=== PATIENT | female | born 1975 | race Caucasian/White ===

== ENCOUNTER 2020-11-26 12:13 | Outpatient (REF) | payer MEDICAID, SELFPAY ==
--- NOTE | ~2020-11-26 | US_ITS ---
EXAMINATION: MM DIAGNOSTIC DIGITAL BREAST TOMOSYNTHESIS, BILATERAL US DIAGNOSTIC ULTRASOUND BREAST, BILATERAL CLINICAL INFORMATION: 44-year-old with intermittent bilateral breast pain for months. No known family history breast cancer. Prior outside mammography from [facility] unavailable. The lifetime risk of breast cancer based on the Tyrer-Cuzick Model is 7%. COMPARISON: None. TECHNIQUE: Digital breast tomosynthesis is performed in both the craniocaudal and mediolateral oblique views along with computer-aided detection (CAD). Synthesized 2D images are generated from the tomosynthesis. Ultrasound bilateral breasts is targeted to the areas of clinical concern using grayscale imaging and color Doppler without and with harmonics. Left breast is imaged in all 4 quadrants. Right breast is imaged in all 4 quadrants. FINDINGS: The breasts are heterogeneously dense, which may obscure small masses (ACR BI-RADS breast composition Category c). There is no architectural abnormality or abnormal calcifications in either breast. The axilla and skin contours are unremarkable. There is no skin thickening or coarsening of the Rohan's ligaments. The left breast has circumscribed 5 mm nodule 6:00 position mid depth. The right breast has circumscribed macrolobulated nodule central lower mid depth 0.9 cm and outer quadrant 0.7 cm and 0.8 cm, respectively. Ultrasound left breast demonstrates simple cyst 5:00 position 4 cm from nipple measuring 0.4 cm. There is no solid mass or architectural abnormality. No focal duct ectasia. No skin thickening or edema tracking in the soft tissue planes. Ultrasound right breast demonstrates multiple simple cysts largest 7:00 position 4 cm from nipple measuring 1.1 x 0.6 cm. There are 2 adjacent satellite cysts of smaller size in this area. There are other scattered cysts throughout the right breast and smaller size, and next largest 9:00 position 12 cm from nipple measuring 0.8 x 0.6 cm. There is no solid mass or architectural abnormality. No skin thickening or focal duct ectasia. No edema tracking in soft tissue planes. Preliminary results are discussed with the patient and her at time of visit. US/US breast LT limited IMPRESSION: 1. No mammographic evidence of malignancy or inflammatory changes. 2. Bilateral small simple cysts, largest right, only 1.1 cm. 3. No abscess. No edema tracking in soft tissue planes. ASSESSMENT: BI-RADS 2: Benign RECOMMENDATION: 1. Patient's breast pain may be be managed based on the clinical impression. 2. Otherwise, routine annual screening mammography. This patient's information was entered into a reminder system with a target due date for their next mammogram.
== END 2020-11-26 12:14 | disposition home or self-care (01) ==
LOC: HO.MAMMO 12:13
PROVIDERS: PCP Nurse Practitioner Family; Visit Provider Nurse Practitioner Family
DX: N64.4 Mastodynia (principal)
CPT/HCPCS: 76642; 77062; 77066

== ENCOUNTER 2021-03-20 09:59 | Outpatient (REF) | payer MEDICAID, SELFPAY ==
--- NOTE | ~2021-03-20 | US_ITS ---
EXAMINATION: US ABDOMEN LIMITED CLINICAL INFORMATION: Liver disease. MRI February 2021 showed 2.6 cm lesion right hepatic lobe. COMPARISON: None TECHNIQUE: Real-time imaging of the right upper quadrant abdominal viscera. FINDINGS: PANCREAS: Head and body the pancreas are normal. The tail is not well visualized due to bowel gas. LIVER: The liver is normal in size. The liver contour is normal. Parenchymal echogenicity is normal. There is a 2.7 x 3.1 x 2.3 cm hyperechoic lesion in the right lobe of the liver There is no intrahepatic biliary duct dilatation seen. GALLBLADDER: Normal. The gallbladder is physiologically distended without evidence of stones, sludge, polyps, wall thickening or pericholecystic fluid. COMMON BILE DUCT: Normal in caliber measuring 0.36 cm in diameter. RIGHT KIDNEY: There is a central cystic structure measuring 3.8 x 3.3 x 2.4 cm questionable for an extrarenal pelvis. Differential would include a right UPJ obstruction. No calyceal dilatation seen. No renal calculi or focal parenchymal lesions. The kidney measures 10.0 cm in maximum dimension. FREE FLUID: None. US/US abdomen limited IMPRESSION: 2.7 x 3.1 x 2.3 cm hyperechoic lesion in the right lobe of the liver. This may represent a benign hemangioma. Comparison with outside MRI recommended. 3.8 x 3.3 x 3.4 cm cystic structure in the central right kidney questionable for an extrarenal pelvis. Differential would include a UPJ obstruction. Limited visualization of the tail of pancreas.
== END 2021-03-20 10:00 | disposition home or self-care (01) ==
LOC: HO.HMGCX 09:59
PROVIDERS: Visit Provider Nurse Practitioner Family
DX: K76.9 Liver disease, unspecified (principal)
CPT/HCPCS: 76705

== ENCOUNTER 2025-05-29 10:03 | Outpatient (REF) | payer MEDICAID, SELFPAY ==
--- NOTE | ~2025-05-29 | XR_ITS ---
EXAMINATION: XR SHOULDER, LEFT CLINICAL INFORMATION: chronic pain COMPARISON: None available. TECHNIQUE: AP external rotation, Grashey, scapular Y, and axillary views of the left shoulder. FINDINGS: No acute cortical disruption or malalignment. No lytic or blastic lesions. No subchondral cyst formation or sclerosis along the articular surface. No calcifications in the soft tissues. XR/XR shoulder LT min 2V IMPRESSION: Normal x-ray, left shoulder. Electronically signed by: Wade Dyer MD 05/29/2025 10:53 AM EDT
--- OUTSIDE RECORDS SUMMARY | 2025-05-29 10:56 | XMS_ITS | Clinical Summary ---
Author Organization [employer] [facility] ity Address [address] [place] [address] Care Team Providers Care Finish Production Manager Name Role Phone Unavailable Primary Care Provider Unavailabl e Social History Tobacco Use Types Packs/Day Years Used Date Smoking Tobacco: Never Assessed Comments Unknown Sex and Gender Information Value Date Recorded Sex Assigned at Not on file Legal Sex Female 8:32 PM EST Gender Identity Not on file Sexual Orientation Not on file Plan of Treatment Health Maintenance Due Date Last Done Comments Breast Cancer Screening 1974 DTaP,Tdap,and Td Vaccines (1 - Tdap) 1993 Hepatitis B Vaccines (1 of 3 - 19+ 3-dose series) 1993 Cervical Cancer Screening: P ap Smear 12/26/1995 COVID-19 Vaccine ( - 2023-2 5 season) 2024 Depression Screening 10/12/2024 Pneumococcal Vaccine: 50+ Ye ars (1 of 1 - PCV) 2024 Zoster Vaccines (1 of 2) 2024 Influenza Vaccine (#1) 2025 HIB Vaccines Aged Out No longer eligi ble based on patient's age to complete this topic HPV Vaccines Aged Out No longer eligi ble based on patient's age to complete this topic Hepatitis A Vaccines Aged Out No long er eligible based on patient's age to complete this topic IPV Vaccines Aged Out No longer eligi ble based on patient's age to complete this topic MMR Vaccines Aged Out No longer eligi ble based on patient's age to complete this topic Meningococcal ACWY Vaccine Aged Out N o longer eligible based on patient's age to complete this topic Meningococcal B Vaccine Aged Out No l onger eligible based on patient's age to complete this topic RSV Immunization Patients Un tyrone 20 months Aged Out No longer eligible b ased on patient's age to complete this topic Varicella Vaccines Aged Out No longer eligible based on patient's age to complete this topic
--- OUTSIDE RECORDS SUMMARY | 2025-05-29 10:56 | XMS_ITS | Clinical Summary ---
Author Organization [employer] Address [address] [facility] [address] [place] [address] Care Team Providers Care Lead Pl Sql Developer Name Role Phone Ivonne Oh MANAGER FLORAL Primary Care Provider Allergies No known active allergies Medications fluticasone (Flonase) 50 MCG/ACT nasal sprayIndications :Pharyngitis, unspecified etiology Use 1 spray each nostril daily. Shake gently. Before first use, prime pump. After use, clean tip and replace cap. 16 g 2 05/11/2023 Active loratadine (Claritin) 10 MG tabletIndication s:Pharyngitis, unspecified etiology Take 1 tablet (10 mg) by mouth in the morning. 30 tablet 11 05/11/2023 Active acetaminophen (Tylenol 8 Hour) 650 MG ER tabletIndication s:Chronic left shoulder pain Take 1 tablet (650 mg) by mouth every 8 (eight) hours if needed for mild pain for up to 10 days. Do not crush, chew, or split. 30 tablet 05/27/2025 06/06/20 25 Active Active Problems Problem Noted Date Diagnosed Date Loss of taste 05/27/2025 Assessment & Plan (05/27/2025 10:16 AM EDT): Patient will be contacted with results ENT referral Loss of perception for smell 05/27/2025 Assessment & Plan (05/27/2025 10:16 AM EDT): Patient will be contacted with results ENT referral Chronic left shoulder pain 05/27/2025 Assessment & Plan (05/27/2025 10:16 AM EDT): Patient will be contacted with results Encounters Date Type Department Care Team Description 05/27/2025 9:40 AM EDT Office Visit [facility] [address] [place] [phone] Lianna Montero MD Loss of taste (Primary Dx); Loss of perception for smell; Chronic left shoulder pain 05/27/2025 Travel 05/26/2025 Telephone [facility] [address] [place] [phone] Ivonne Oh FNP Nurse Triage from Last 3 Months Social History Tobacco Use Types Packs/Day Years Used Date Smoking Tobacco: Never Passive Smoke Exposure: Never Smokeless Tobacco: Never Tobacco Cessation:Counseling Given: Not Answered Comments Unknown Sex and Gender Information Value Date Recorded Sex Assigned at Female 08/11/2022 10:36 AM EDT Legal Sex Female 10:36 AM EDT Gender Identity Female 08/11/2022 10:36 AM EDT Sexual Orientation Straight 08/11/2022 10 :36 AM EDT Last Filed Vital Signs Vital Sign Reading Time Taken Comments Blood Pressure 128/84 05/27/2025 9:34 AM EDT Pulse 80 05/27/2025 9:34 AM EDT Temperature 37.1 C (98.7 F) 05/27/2025 9:34 AM EDT Respiratory Rate 16 05/27/2025 9:34 AM EDT Oxygen Saturation 98% 05/11/2023 6:30 PM EDT Inhaled Oxygen Concentration - - Weight 70.5 kg (155 lb 6.4 oz) 05/27/2025 9:34 A M EDT Height 157.5 cm (5' 2 ) 05/27/2025 9:34 AM EDT Body Mass Index 28.42 05/27/2025 9:34 AM EDT Plan of Treatment Upcoming Encounters Date Type Department Care Team (Late st Contact Info) Description 06/21/2025 2:00 PM EDT Office Visit [facility] MED[facility] [address] [place] [phone] Ivonne Oh FNP [address] [place] [address] Health Maintenance Due Date Last Done Comments CT Colonography 1974 Colonoscopy 1974 Colorectal Cancer Screening 1974 Depression Screening 1974 FIT DNA/Cologuard 1974 FIT 1974 FOBT 1974 SDOH Screening 1974 Sigmoidoscopy 1974 Disability Screening 1974 Alcohol/Substance Use Screening 1986 Family Planning (PISQ) 1989 Hepatitis B Vaccines (1 of 3 - 19+ 3-dose series) 1993 Mammogram 11/26/2022 11/26/2020, 11/26/2020 COVID-19 Vaccine (3 - 2023-2 5 season) 2024 03/13/2021, 02/20/2021 Pneumococcal Vaccine: 50+ Years (1 of 1 - PCV) 2024 Zoster Vaccines (1 of 2) 2024 Influenza Vaccine (#1) 2025 08/01/2021 Cervical Cancer Screening 08/02/2025 HPV/Cotest 08/02/2025 08/02/2020 Pap Smear 08/02/2025 08/02/2020 Tobacco Screening 05/27/2026 05/27/2025 DTaP/Tdap/Td Vaccines (2 - T d or Tdap) 03/12/2029 03/12/2019 RSV Patients and Patients Aged 60 years or older (1 - 1-dose 75+ series) 2049 HIV Screening Completed 09/21/2019 Hepatitis C Screening Completed 09/21/2019 HIB Vaccines Aged Out No longer eligi [...] patient's age to complete this topic Meningococcal Vaccine Aged Out No pascale liam eligible based on patient's age to complete this topic RSV under 20 months Aged Out No longe r eligible based on patient's age to complete this topic Rotavirus Vaccines Aged Out No longer eligible based on patient's age to complete this topic Procedures Procedure Name Priority Date/Time Associated Diagnosis Comments MAMMOGRAM GENERIC Routine 11/26/2020 12: 17 PM EST HPV MRNA E6/E7 Routine 08/02/2020 1:37 PM EDT THINPREP PAP Routine 08/02/2020 1:37 PM EDT ZZZ HISTORICAL HEPATITIS C ANTIBODY RFLX Routine 09/21/2019 9:26 AM EST ZZZ HISTORICAL HIV AB/AG Routine 09/21/2019 9:26 AM EST from Last 3 Months or Most Recently Relevant to Health Maintenance Results * Mammography Report 1 (11/26/2020 12:17 PM EST) Anatomical Region Laterality Modality Breast Bilateral Mammography 11/26/2020 12:1 7 PM EST Narrative 11/26/2021 12:35 AM EST Refer to the Notes tab for result details [facility] Procedure: Mammography Report 1 Procedure Note Provider, Damon, - 01/03/2023 Refer to the Notes tab for result details [facility] Procedure: Mammography Report 1 us Dave Lopes MANAGER FLORAL IMG BI PROCEDURES Final Res ult * THINPREP PAP (08/02/2020 1:37 PM EDT) Clinical Information: SEE COMMENT [facility] Comment:None given COMMENT SEE COMMENT [facility] Comment: EXPLANATORY NOTE: The Pap is a screening test for cervical cancer. It is not a diagnostic test and is subject to false negative and false positive results. It is most reliable when a satisfactory sample, regularly obtained, is submitted with relevant clinical findings and history, and when the Pap result is evaluated along with historic and current clinical information. Fish And Wildlife Biologist: SEE COMMENT [facility] Comment: KF, CT(ASCP) CT screening location: [place] [address] Interpretation/Resu lt: SEE COMMENT [facility] Comment:Negative for intraep ithelial lesion or malignancy. LMP: SEE COMMENT [facility] Comment:NONE GIVEN Prev. BX: NONE GIVEN [facility] Prev. PAP: SEE COMMENT [facility] Comment:NONE GIVEN SOURCE: SEE COMMENT [facility] Comment:None given Statement Of Adequacy: SEE COMMENT [facility] Comment: Satisfactory for evaluation. Endocervical/transformation zone component absent. Age and/or menstrual status not provided 08/02/2020 1:37 PM EDT General [employer] [facility] PATHOLOGY ORDERABLES Fi nal Result Performing Organization Address [facility] de Phone Number [facility] [address] * HPV mRNA E6/E7 (08/02/2020 1:37 PM EDT) Pathologist [facility] HPV nRNA E6/E7 Not Detected Not Detected [facility] Comment: This test was performed using the APTIMA HPV Assay ([employer] This assay detects E6/E7 viral messenger RNA (mRNA) from 14 high-risk HPV types (16,18,31,33,35,39,45,51,52,56,58,59,66,68). The analytical performance characteristics of this assay have been determined by [employer]. The modifications have not been cleared or approved by the FDA. This assay has been validated pursuant to the CLIA regulations and is used for clinical purposes. NO COLLECTION DATE RECEIVED. WE HAVE USED THE DATE THE SPECIMEN WAS RECEIVED BY THIS LABORATORY THE COLLECTION DATE. IF THIS IS INCORRECT, PLEASE CONTACT CLIENT SERVICES. PHONE NUMBER: 08/02/2020 1:37 PM EDT [employer] [facility] BLOOD ORDERABLES Final Result Performing Organization Address [facility] de Phone Number [facility] [address] * HEPATITIS C ANTIBODY RFLX (09/21/2019 9:26 AM EST) Pathologist [facility] HEPATITIS C ANTIBODY NONREACTIVE NONREACTIVE [facility] Comment: Antibodies to HCV not detected; does not exclude early acute HCV infection. 09/21/2019 9:26 AM EST Lv Pacheco MD HISTORICAL/NON ORDERABLE LABS Fi nal Result Performing Organization Address [facility] Number [facility] [address] * HIV AB/AG (09/21/2019 9:26 AM EST) HIV AG/AB NONREACTIVE [facility] Comment: HIV-1 p24 Ag and/or HIV-1/HIV-2 Ab not detected. A test result that is nonreactive does not exclude the possibility of exposure to or infection with HIV-1 and/or HIV-2. Nonreactive results in this assay for individuals with prior exposure to HIV-1 and/or HIV-2 may be due to antigen and antibody levels that are below the limit of detection of this assay. The [employer] Operating Room Coordinator HIV Ag/Ab Combo assay result and supplemental assay results should be interpreted in conjunction with the patient's clinical presentation, history and other laboratory results. If the results are inconsistent with clinical evidence, additional testing is suggested to confirm the result. 09/21/2019 9:26 AM EST Lv Pacheco MD HISTORICAL/NON ORDERABLE LABS Fi nal Result Performing Organization Address [facility] [address] from Last 3 Months or Most Recently Relevant to Health Maintenance Insurance [facility] C3 Care Teams Lead Pl Sql Developer Relationship Specialty Start Date End Date Ivonne Oh FNP [address] [place] [phone] PCP - General Family Medicine 05/26/25
== END 2025-05-29 10:04 | disposition home or self-care (01) ==
LOC: HO.HHCX 10:03
PROVIDERS: Visit Provider Internal Medicine
DX: M25.512 Pain in left shoulder (principal); G89.29 Other chronic pain
CPT/HCPCS: 73030

== ENCOUNTER → 2025-05-29 10:03 | Outpatient (BNV) | payer MEDICAID, SELFPAY | PROVIDERS: Visit Provider Radiology Diagnostic Radiology | DX: M25.512 Pain in left shoulder (principal) | CPT/HCPCS: 73030 ==

== ENCOUNTER 2025-05-29 10:19 | Outpatient (REF) | payer MEDICAID, SELFPAY ==
[2025-05-29 11:37] LABS: Imm Gran Abs Auto 0.02 X10*3/uL (0.00-0.03); Imm Gran Pct Auto 0.3 % (0.0-0.4); MANUAL DIFF FLAG SCAN; NRBC Abs Auto 0.000 X10*3/uL (0.0-0.012); NRBC Pct Auto 0.0 /100WBC (0.0-0.2); PLT CLUMP 1; Red Blood Count 4.49 X10*6/uL (4.20-5.50); SCAN SMEAR FLAG 1
[2025-05-29 11:38] LABS: Hematocrit 40.8 % (37.0-47.0); Hemoglobin 13.4 g/dl (12.0-16.0); Lymphocytes Absolute Auto 2.3 X10*3/uL (1.2-4.9); Mean Corpuscular HGB Conc 32.8 g/dl (31.0-35.0); Mean Corpuscular Hemoglobin 29.8 pg (27.0-33.0); Mean Corpuscular Volume 90.9 fL (80.0-98.0)
[2025-05-29 11:40] LABS: White Blood Count 7.1 X10*3/uL (4.8-10.8)
[2025-05-29 12:13] LABS: Hemoglobin A1C 175.7090 umol/L; Total Hemoglobin (HGBA1C) 4950.3985 umol/L
[2025-05-29 12:24] LABS: Alanine Aminotransferase 17 U/L (0-31); Albumin Level 4.4 g/dL (3.5-5.0); Alkaline Phosphatase 68 U/L (39-117); Anion Gap 12 (12-20); Aspartate Amino Transferase 25 U/L (5-31); Blood Urea Nitrogen 14 mg/dL (9-16); Calcium 9.7 mg/dL (8.4-10.2); Carbon Dioxide 27 mmol/L (22-29); Chloride 104 mmol/L (96-108); Cholesterol 280 mg/dL (<200); Estimated Glomerular Filt Rate > 60; HDL Cholesterol 47 mg/dL (>40); Potassium 4.2 mmol/L (3.3-5.1); Sodium 139 mmol/L (135-145); Total Protein 8.0 g/dL (6.5-8.0); Triglycerides 134 mg/dL (<150)
[2025-05-30 07:53] LABS: HIV Num 1 0.04 S/CO (0.00-0.99); ~HepC Num1 0.11 S/CO (0.00-0.79); ~Hepatitis C Antibody Nonreactive (Nonreactive)
== END 2025-05-29 10:20 | disposition home or self-care (01) ==
LOC: HO.HHCL 10:19
PROVIDERS: PCP Internal Medicine; Visit Provider Internal Medicine
DX: Z11.59 Encounter for screening for other viral diseases (principal); Z11.4 Encounter for screening for human immunodeficiency virus [HIV]; R43.2 Parageusia; R43.0 Anosmia
CPT/HCPCS: 36415; 80053; 80061; 82306; 83036; 84443; 85025; 86803; 87389

== ENCOUNTER 2025-06-22 09:24 | Outpatient (REF) | payer MEDICAID, SELFPAY ==
--- OUTSIDE RECORDS SUMMARY | 2025-06-21 14:00 | XMS_ITS | Encounter Summary ---
Author Organization [employer] Address [address] [place] [address] Care Team Providers Care Type Cutter Name Role Phone Ivonne Oh [employer]ING [employer]OR[employer] Primary Care Provider [phone] Encounter Details Date Type Department Care Team (Late st Contact Info) Description 06/21/2025 2:00 PM EDT Office Visit [facility] [address] [place], [place] [phone] Ivonne Oh FNP [address], [place] [phone] Well adult exam (Primary Dx) Social History Tobacco Use Types Packs/Day Years Used Date Smoking Tobacco: Never Passive Smoke Exposure: Never Smokeless Tobacco: Never Depression Answer Date Recorded Patient Health Questionnaire-9 Score 9 06/21/2025 Patient Health Questionnaire-9 Score 9 06/21/2025 Last PHQ-9: Questionnaire Data Not on file 0 06/21/2025 Housing Stability Answer Date Recorded What is your housing situation today? I have housing today, but I am worried about losing housing in the future 06/21/[address] you li ve. Do you have problems with any of the following? None of the above 06/21/2025 Food Insecurity Answer Date Recorded Within the past 12 months, y ou worried that your food would run out before you got money to buy more: Often true 06/21/2025 Within the past 12 months,th e food you bought just didn't last and you didn't have enough money to get more: Often true 07/2025 Transportation Answer Date Recorded In the past 12 months, has l ack of transportation kept you from medical appts, meetings, work or from getting things needed for daily living? I am not sure 06/21/2025 Utilities Answer Date Recorded In the past 12 months, has t he electric, gas, oil or water company threatened to shut off services in your home? Yes 06/21/2025 Depression Answer Date Recorded Patient Health Questionnaire-2 Score 2 06/21/2025 Internet Access Answer Date Recorded Internet Access Q1 Yes 06/21/2025 Internet Access Q2 Not on file 06/21/2025 Comments Unknown Sex and Gender Information Value Date Recorded Sex Assigned at Female 08/11/2022 10:36 AM EDT Legal Sex Female 10:36 AM EDT Gender Identity Female 08/11/2022 10:36 AM EDT Sexual Orientation Straight 08/11/2022 10 :36 AM EDT documented as of this encounter Last Filed Vital Signs Vital Sign Reading Time Taken Comments Blood Pressure 114/82 06/21/2025 1:56 PM EDT Pulse 75 06/21/2025 1:56 PM EDT Temperature 37.2 C (98.9 F) 06/21/2025 1:56 PM EDT Respiratory Rate 18 06/21/2025 1:56 PM EDT Oxygen Saturation 99% 06/21/2025 1:56 PM EDT Inhaled Oxygen Concentration - - Weight 69.1 kg (152 lb 6 oz) 06/21/2025 1:56 PM EDT Height 160 cm (5' 2.99 ) 06/21/2025 1:56 PM EDT Body Mass Index 27 06/21/2025 1:56 PM EDT documented in this encounter Functional Status * Over the past 2 weeks, how often have you been bothered by any of the following problems? Question Answer Date of Assessment Author Patient Health Questionnaire -2 Score 2 06/21/2025 1:59 PM EDT Jenniffer Nagel MA * Little interest or pleasure in doing things Answer Date of Assessment Author Several days 06/21/2025 1:59 PM EDT Jenniffer Latham MA * Feeling down, depressed, or hopeless Answer Date of Assessment Author Several days 06/21/2025 1:59 PM EDT Jenniffer Latham MA * Trouble falling or staying asleep, or sleeping too much Answer Date of Assessment Author Several days 06/21/2025 1:59 PM EDT Jenniffer Latham MA * Feeling tired or having little energy Answer Date of Assessment Author Several days 06/21/2025 1:59 PM EDT Jenniffer Latham MA * Poor appetite or overeating Answer Date of Assessment Author Several days 06/21/2025 1:59 PM EDT Jenniffer Latham MA * Feeling bad about yourself - or that you are a failure or have let yourself or your family down Answer Date of Assessment Author Several days 06/21/2025 1:59 PM EDT Jenniffer Latham MA * Trouble concentrating on things, such as reading the newspaper or watching television Answer Date of Assessment Author Several days 06/21/2025 1:59 PM EDT Jenniffer Latham MA * Moving or speaking so slowly that other people could have noticed? Or the opposite - being so fidgety or restless that you have been moving around a lot more than usual. Answer Date of Assessment Author Several days 06/21/2025 1:59 PM EDT Jenniffer Latham MA * Thoughts that you would be better off or hurting yourself in some way Answer Date of Assessment Author Several days 06/21/2025 1:59 PM EDT Jenniffer Latham MA * Patient Health Questionnaire-9 Score Answer Date of Assessment Author 9 06/21/2025 1:59 PM EDT Jenniffer Latham MA * How difficult have these problems made it for you to do your work, take care of things at home, or get along with other people? Answer Date of Assessment Author Somewhat difficult 06/21/2025 1:59 PM EDT Jenniffer Nagel MA * Over the last 2 weeks, how often have you been bothered by any of the following problems? Question Answer Date of Assessment Author Feeling nervous, anxious, or on edge 0 06/21/2025 1:59 PM EDT Jenniffer Nagel MA Not being able to stop or control worrying 1 06/21/2025 1:59 PM EDT Jenniffer Nagel MA Worrying too much about different things 2 06/21/2025 1:59 PM EDT Jenniffer Ngael MA Trouble relaxing 2 06/21/2025 1:59 PM EDT Jenniffer Carrington MA Being so restless that it is hard to sit still 2 06/21/2025 1:59 PM EDT Jenniffer Nagel MA Becoming easily annoyed or irritable 2 06/21/2025 1:59 PM EDT Jenniffer Nagel MA Feeling afraid as if somethi ng awful might happen 1 06/21/2025 1:59 PM EDT Jenniffer Nagel MA SÁNCHEZ-7 Total Score 10 06/21/2025 1:59 PM EDT Jenniffer Nagel MA documented as of this encounter Plan of Treatment Upcoming Encounters Date Type Department Care Team (Late st Contact Info) Description 06/28/2025 11:00 AM EDT Office Visit [facility] [address] [place] [phone] Ivonne Oh FNP [address] [place] [address] 06/30/2025 9:30 AM EDT Office Visit [facility] [address] [place] [address] Scheduled Orders Name Type Priority Associated Diagnoses Orde r Schedule Comprehensive Metabolic Panel Lab Routine Well adult exam Expected: 06/21/2025 (Approximate), Expires: 06/21/2026 Hepatitis B Core Antibody, Total Lab Routine Well adult exam Expected: 06/21/2025 (Approximate), Expires: 06/21/2026 TSH Lab Routine Well adult exam Expected: 06/21/2025 (Approximate), Expires: 06/21/2026 Hepatitis B Surface Antibody, Qualitative Lab Routine Well adult exam Expected: 06/21/2025 (Approximate), Expires: 06/21/2026 Hepatitis B surface antigen, EIA Lab Routine Well adult exam Expected: 06/21/2025 (Approximate), Expires: 06/21/2026 Hepatitis C Antibody with Reflex to HCV, RNA, Quantitative, Real-Time PCR Lab Routine Well adult exam Expected: 06/21/2025, Expires: 06/21/2026 CBC auto differential Lab Routine Well adult exam Expected: 06/21/2025 (Approximate), Expires: 06/21/2026 HIV-1/2 Antigen and Antibodies, Fourth Generation, with Reflexes Lab Routine Well adult exam Expected: 06/21/2025 (Approximate), Expires: 06/21/2026 Vitamin D, 25-Hydroxy, Total, Immunoassay Lab Routine Well adult exam Expected: 06/21/2025 (Approximate), Expires: 06/21/2026 Chlamydia/N. Gonorrhoeae, PCR, Urine Lab Routine Well adult exam Ordered: 06/21/2025 documented as of this encounter Visit Diagnoses Diagnosis Well adult exam- Primary Routine general medical examination at a health care facility documented in this encounter Additional Health Concerns Assessment Noted Time PHQ-9 Depression Total Score: 9 06/21/20 25 1:59 PM EDT documented as of this encounter Care Teams Type Cutter Relationship Specialty Start Date End Date Ivonne Oh FNP [address] [place] [id number] PCP - General Family Medicine 05/26/25 documented as of this encounter
--- OUTSIDE RECORDS SUMMARY | 2025-06-22 10:54 | XMS_ITS | Clinical Summary ---
Author Organization [employer] Address [address] [facility] [address] [place] [address] Care Team Providers Care Coverer Name Role Phone Ivonne Oh ICT SALES ASSISTANT Primary Care Provider [phone] Allergies No known active allergies Medications fluticasone (Flonase) 50 MCG/ACT nasal sprayIndications:P haryngitis, unspecified etiology Use 1 spray each nostril daily. Shake gently. Before first use, prime pump. After use, clean tip and replace cap. 16 g 2 05/11/20 23 Active fexofenadine ODT (Jany ODT) 30 MG disintegrating tablet Take 30 mg by mouth Once per day. Active ibuprofen 200 MG tablet 200 mg every 6 (six) hours if needed for mild pain or moderate pain. Active loratadine (Claritin) 10 MG tabletIndications: Pharyngitis, unspecified etiology Take 1 tablet (10 mg) by mouth in the morning. 30 tablet 11 05/11/20 23 025 Discontinu ed(Ineffec tive) acetaminophen (Tylenol 8 Hour) 650 MG ER tabletIndications: Chronic left shoulder pain Take 1 tablet (650 mg) by mouth every 8 (eight) hours if needed for mild pain for up to 10 days. Do not crush, chew, or split. 30 tablet 05/27/20 25 025 Active Problems Problem Noted Date Diagnosed Date Chronic thoracic back pain 06/21/2025 Loss of taste 05/27/2025 Assessment & Plan [...] Encounters Date Type Department Care Team Description 06/21/2025 2:00 PM EDT Office Visit [facility] [address] [place] [phone] Ivonne Oh FNP Well adult exam (Primary Dx) 06/21/2025 Travel 06/19/2025 Telephone [facility] [address] [place] [address] Ivonne Oh FNP Chart Prep 06/14/2025 Patient Outreach [facility] [address] [place] [address] Ivnone Oh FNP Pre-visit Planning (SDOH will need to be completed in office.) 05/29/2025 Orders Only [facility] [address] [place] [phone] Lianna Montero MD 05/29/2025 Results Follow-Up [facility] [address] [place] [address] Lianna Montero MD XR Shoulder 2+ Views Left 05/27/2025 9:40 AM EDT Office Visit [facility] [address] [place] [phone] Lianna Montero MD Loss of taste (Primary Dx); Loss of perception for smell; Chronic left shoulder pain 05/27/2025 Travel 05/26/2025 Telephone [facility] [address] [place] [phone] Ivonne Oh FNP Nurse Triage from Last 3 Months Family History Medical History Relation Name Comments Cancer Father Cancer Mother Throat cancer Sister Relation Name Status Comments Father Mother Sister Social History Tobacco Use Types Packs/Day Years Used Date Smoking Tobacco: Never Passive Smoke Exposure: Never Smokeless Tobacco: Never Tobacco Cessation:Counseling Given: Not Answered Depression Answer Date Recorded Patient Health Questionnaire-9 [...] Mass Index 27 06/21/2025 1:56 PM EDT Plan of Treatment Upcoming Encounters Date Type Department Care Team (Late st Contact Info) Description 06/28/2025 11:00 AM EDT Office Visit [facility] [address] [place] [address] Ivonne Oh FNP [address] [place] [address] 06/30/2025 9:30 AM EDT Office Visit [facility] AD[facility] DENTAL [address] [place] [address] Health Maintenance Due Date Last Done Comments CT Colonography 1974 Colonoscopy 1974 Colorectal Cancer Screening 1975 FIT DNA/Cologuard 1974 FIT 1975 FOBT 1975 Sigmoidoscopy 1975 Family Planning (PISQ) 1989 Hepatitis B Vaccines (1 of 3 - 19+ 3-dose series) 1993 Mammogram 11/26/2022 11/26/2020, 11/26/2020 Pneumococcal Vaccine: 50+ Years (1 of 1 - PCV) 2024 Zoster Vaccines (1 of 2) 2024 COVID-19 Vaccine (3 2024-2 6 season) 2025 03/13/2021, 02/20/2021 Influenza Vaccine (#1) 2025 08/01/2021 Cervical Cancer Screening 08/02/2025 HPV/Cotest 08/02/2025 08/02/2020 Pap Smear 08/02/2025 08/02/2020 Depression Monitoring 12/19/2025 06/21/2025 , 06/21/2025 Alcohol/Substance Use Screening 06/21/2026 06/21/2025 Disability Screening 06/21/2026 06/21/2025 SDOH Screening 06/21/2026 06/21/2025 Tobacco Screening 06/21/2026 06/21/2025 DTaP/Tdap/Td Vaccines (2 - T d or Tdap) 03/12/2029 03/12/2019 RSV Patients and Patients Aged 60 years or older (1 - 1-dose 75+ series) 2049 HIV Screening Completed 05/29/2025, 09/21/2019 Hepatitis C Screening Completed 05/29/2025 , 09/21/2019 HIB Vaccines Aged Out No longer [...] Procedure Name Priority Date/Time Associated Diagnosis Comments SLIDE REVIEW Routine 05/29/2025 10:32 AM EDT TSH W/REFLEX TO FT4 Routine 05/29/2025 1 0:32 AM EDT Loss of taste Loss of perception for smell VITAMIN D,25-OH,TOTAL,IA Routine 05/29/2025 10:32 AM EDT Loss of taste Loss of perception for smell LIPID PANEL, STANDARD Routine 05/29/2025 10:32 AM EDT Loss of taste Loss of perception for smell HEPATITIS C AB W/REFL TO HCV RNA, QN, PCR Routine 05/29/2025 10:32 AM EDT Loss of taste Loss of perception for smell HIV 1/2 ANTIGEN/ANTIBODY, FOURTH GENERATION W/RFL Routine 05/29/2025 10:32 AM EDT Loss of taste Loss of perception for smell HEMOGLOBIN A1C Routine 05/29/2025 10:32 AM EDT Loss of taste Loss of perception for smell COMPREHENSIVE METABOLIC PANEL Routine 05/29/2025 10:32 AM EDT Loss of taste Loss of perception for smell CBC WITH AUTO DIFFERENTIAL Routine 05/29/2025 10:32 AM EDT Loss of taste Loss of perception for smell XR SHOULDER 2+ VIEWS LEFT Routine 05/29/2025 9:26 AM EDT Chronic left shoulder pain MAMMOGRAM GENERIC Routine 11/26/2020 12: 17 PM EST HPV MRNA E6/E7 Routine 08/02/2020 1:37 PM EDT THINPREP PAP Routine 08/02/2020 1:37 PM EDT from Last 3 Months or Most Recently Relevant to Health Maintenance Results * Slide Review (05/29/2025 10:32 AM EDT) Slide Review VERIFIED [facility] 05/29/2025 10:3 2 AM EDT 05/29/2025 11:10 AM EDT us Lianna Taylor MD LAB BLOOD ORDERABLES Final Result [facility] [address] [place] [phone] * Vitamin D, 25-Hydroxy, Total, Immunoassay (05/29/2025 10:32 AM EDT) Vitamin D 25-OH Total 76.2 >30 ng/mL [facility] Comment: Health Based Reference Values*< 20 ng/mL [id number] ng/mL Insufficient> 30 ng/mL Sufficient*Tre LOVELL. N Engl J Med. 2007;357:266-280There is no well-established upper level of normal vitamin Dlevels. Some laboratories use 50 ng/mL as an upper limit ofnormal. However, toxicity is patient-dependent and may occurat any level. Careful correlation with the patient'spresentation is necessary and, if there is concern forvitamin D toxicity, treatment should be consideredirrespective of the serum level.Care must be taken in interpreting Vitamin D results fromdifferent laboratories and methodologies. Published datademonstrated that results from patients undergoinghemodialysis may show a negative bias when tested withvarious automated 25-OH vitamin D assays when compared toLC-MS/MS.When testing samples from patients whose predominant form ofVitamin D is Vitamin D2, such as patients receiving VitaminD2 supplementation, results that are subtherapeutic shouldbe confirmed with another method such as LC-MS/MS. Blood Venous blood specimen / Unknown 05/29/2025 10:32 AM EDT 05/29/2025 11:10 AM EDT us Lianna Taylor MD LAB BLOOD ORDERABLES Final Result Performing Organization Address [facility]/ZIP Co de Phone Number [facility] [address] [place] [phone] * TSH with Reflex to Free T4 (05/29/2025 10:32 AM EDT) Pathologist [facility] TSH reflex Free T4 1.87 0.32 - 4.0 uIU/mL [facility] Blood Venous blood specimen / Unknown 05/29/2025 10:32 AM EDT 05/29/2025 11:10 AM EDT us Lianna Taylor MD LAB BLOOD ORDERABLES Final Result Performing Organization Address [facility]/ZIP Co de Phone Number [facility] [address] [place] [phone] * (ABNORMAL) CBC auto differential (05/29/2025 10:32 AM EDT) White Blood Count 7.1 4.8 - 10.8 X10*3/uL [facility] Red Blood Count 4.49 4.20 - 5.50 X10*6/uL [facility] Hemoglobin 13.4 12.0 - 16.0 g/dl [facility] Hematocrit 40.8 37.0 - 47.0 % [facility] Mean Corpuscular Volume 90.9 80.0 - 98.0 fL [facility] Mean Corpuscular Hemoglobin 29.8 27.0 - 33.0 pg [facility] Mean Corpuscular HGB Conc 32.8 31.0 - 35.0 g/dl [facility] Red Cell Distribution Width 13.2 11.0 - 16.0 % [facility] Neutrophils Percent Auto 55.8 45 - 73 % [facility] Imm Gran Pct Auto 0.3 0.0 - 0.4 % [facility] Lymphocytes Percent Auto 31.7 20 - 40 % [facility] Monocytes Percent Auto 7.4 2 - 11 % [facility] Eosinophils Percent Auto 4.1(H) 0 - 4 % [facility] Basophils Percent Auto 0.7 0 - 2 % [facility] NRBC Pct Auto 0.0 0.0 - 0.2 /100WBC [facility] Neutrophils Absolute Auto 4.0 2.0 - 8.3 x10*3/uL [facility] Imm Gran Abs Auto 0.02 0.00 - 0.03 X10*3/uL [facility] Lymphocytes Absolute Auto 2.3 1.2 - 4.9 X10*3/uL [facility] Monocytes Absolute Auto 0.5 0.1 - 1.2 X10*3/uL [facility] Eosinophils Absolute Auto 0.3 0.0 - 0.4 X10*3/uL [facility] Basophils Absolute Auto 0.1 0.0 - 0.2 X10*3/uL [facility] NRBC Abs Auto 0.000 0.0 - 0.012 X10*3/uL [facility] Blood Venous blood specimen / Unknown 05/29/2025 10:32 AM EDT 05/29/2025 11:10 AM EDT us Lianna Taylor MD LAB BLOOD ORDERABLES Edited Result - Final Performing Organization Address [facility]/ZIP Co de Phone Number [facility] [address] [place] [phone] * Hepatitis C Antibody with Reflex to HCV, RNA, Quantitative, Real-Time PCR (05/29/2025 10:32 AM EDT) Hepatitis C Antibody Nonreactive Nonreactive [facility] Comment:Antibodies to HCV no t detected; does not exclude early acuteHCV infection. Blood Venous blood specimen / Unknown 05/29/2025 10:32 AM EDT 05/29/2025 11:10 AM EDT Lianna Taylor MD LAB BLOOD ORDERABLES Final Result Performing Organization Address [facility] de Phone Number [facility] [address] [place] [phone] * HIV-1/2 Antigen and Antibodies, Fourth Generation, with Reflexes (05/29/2025 10:32 AM EDT) Pathologist [facility] HIV AB/AG Nonreactive Nonreactive [facility] Comment:HIV-1 p24 Ag and/or HIV-1/HIV-2 Ab not detected.A test result that is nonreactive does not exclude thepossibility of exposure to or infection with HIV-1 and/orHIV-2. Nonreactive results in this assay for individualswith prior exposure to HIV-1 and/or HIV-2 may be due toantigen and antibody levels that are below the limit ofdetection of this assay.The [employer] HIV Ag/Ab Combo assay result andsupplemental assay results should be interpreted inconjunction with the patient's clinical presentation,history and other laboratory results. If the results areinconsistent with clinical evidence, additional testing issuggested to confirm the result. Blood Venous blood specimen / Unknown 05/29/2025 10:32 AM EDT 05/29/2025 11:10 AM EDT us Lianna Taylor MD LAB BLOOD ORDERABLES Final Result Performing Organization Address City/[facility]/ZIP Co de Phone Number [facility] [address] [place] [phone] * Hemoglobin A1c (05/29/2025 10:32 AM EDT) Hemoglobin A1c 5.4 <6.0 % [facility] Comment:Hemoglobin A1C Refer ence Range Adults: 4.8 - 6.0 % Non diabetic: < 6.0 % Goal: < 7.0 %Additional Action Suggested: > 8.0 %Note: Hemoglobin A1c results are invalid for patients with abnormal amounts of HbF. Blood transfusions may impact the HbA1c concentration in the patient sample. Estimated Average Glucose 108 mg/dL [facility] Comment:eAG = Estimated ave rage glucose which is %A1C expressed asaverage glucose, using the formula of the D6O-AegsoqtXabumyz Glucose study (ADAG), Diabetes Care, Vol.31,#8,May. 2007 Blood Venous blood specimen / Unknown 05/29/2025 10:32 AM EDT 05/29/2025 11:10 AM EDT us Lianna Taylor MD LAB BLOOD ORDERABLES Final Result Performing Organization Address City/[facility]/ZIP Co de Phone Number [facility] [address] [place] [phone] * (ABNORMAL) Lipid Panel, Standard (05/29/2025 10:32 AM EDT) Triglycerides 134 <150 mg/dL [facility] Comment:Desirable Triglyceri de: less than 150 mg/dLBorderline High Triglyceride 150-199 mg/dLHigh Triglyceride: 200-499 mg/dLVery High Triglyceride: greater than or equal to 5OO mg/dL Cholesterol 280(H) <200 mg/dL [facility] Comment:Desirable Cholestero l: less than 200 mg/dLBorderline High Cholesterol: 200-239 mg/dLHigh Cholesterol: greater than 239 mg/dL LDL Cholesterol Calculated 207(H) <100 mg/dL [facility] Comment:Desirable LDL: less than 100 mg/dLNear Optimal/Above Optimal LDL: 110- 129 mg/dLBorderline High LDL: 130-159 mg/dLHigh LDL: 160-189 mg/dLVery High LDL: greater than or equal to 190 mg/dL HDL Cholesterol 47 >40 mg/dL [facility] Comment:Desirable HDL: great er than 40 mg/dL Note: This HDL assay may give artificially low results in patients with liver disease. Blood Venous blood specimen / Unknown 05/29/2025 10:32 AM EDT 05/29/2025 11:10 AM EDT Lianna Taylor MD LAB BLOOD ORDERABLES Final Result [facility] [address] [place] [phone] [phone] * Comprehensive Metabolic Panel (05/29/2025 10:32 AM EDT) Sodium 139 135 - 145 mmol/L [facility] Potassium 4.2 3.3 - 5.1 mmol/L [facility] Comment:Slight Hemolysis.Int erpret result with caution. Chloride 104 96 - 108 mmol/L [facility] Carbon Dioxide 27 22 - 29 mmol/L [facility] Anion Gap 12 12 - 20 [facility] Urea Nitrogen (BUN) 14 9 - 16 mg/dL [facility] Creatinine, Serum 0.67 0.5 - 1.4 mg/dL [facility] Estimated Glomerular Filt Rate >60 [facility] Comment:Chronic Kidney Disea se: Estimated GFR < 60 mL/min/1.48m9Zrstmk Kidney Disease: Estimated GFR < 15 mL/min/1.73m2 Glucose 90 60 - 115 mg/dL [facility] Calcium 9.7 8.4 - 10.2 mg/dL [facility] Bilirubin, Total 0.6 0.0 - 1.0 mg/dL [facility] Aspartate Amino Transferase 25 5 - 31 U/L [facility] Comment:Slight Hemolysis.Int erpret result with caution. Alanine Aminotransferase 17 0 - 31 U/L [facility] Total Protein 8.0 6.5 - 8.0 g/dL [facility] Albumin Level 4.4 3.5 - 5.0 g/dL [facility] Alkaline Phosphatase 68 39 - 117 U/L [facility] Blood Venous blood specimen / Unknown 05/29/2025 10:32 AM EDT 05/29/2025 11:10 AM EDT us Lianna Taylor MD LAB BLOOD ORDERABLES Final Result Performing Organization Address City/State/[facility] Co de Phone Number [facility] [address] [place] [phone] * XR Shoulder 2+ Views Left (05/29/2025 9:26 AM EDT) Anatomical Region Laterality Modality Upper Extremities, Shoulder Left Radi ographic Imaging 05/29/2025 9:26 AM EDT Narrative 05/29/2025 10:56 AM EDT [address] [address] XRay Report Signed Patient: Tanika Miner MR#: [id number] : 1975 Acct:[id number] Age/Sex: 49 / F ADM Date: 05/29/25 Loc: .[facility] Attending Dr: Lianna Taylor MD Ordering Physician: Lianna Montero MD Date of Service: 05/29/25 Procedure(s): XR shoulder LT min 2V Accession Number(s): [id number] cc: Lianna Montero MD EXAMINATION: XR SHOULDER, LEFT CLINICAL INFORMATION: chronic pain COMPARISON: None available. TECHNIQUE: AP external rotation, Grashey, scapular Y, and axillary views of the left shoulder. FINDINGS: No acute cortical disruption or malalignment. No lytic or blastic lesions. No subchondral cyst formation or sclerosis along the articular surface. No calcifications in the soft tissues. XR/XR shoulder LT min 2V IMPRESSION: Normal x-ray, left shoulder. Electronically signed by: Wade Dyer MD 05/29/2025 10:53 AM EDT RP Dictated By: Wade Wlalace MD Signed By: <Electronically signed by Wade Gastelum MD in OV> 05/29/25 1053 DD/ 5 TD/TT: 05/29/25929 Statement Processor: Procedure Note Donotuseinterpreter, Image - 05/29/[address] [address] XRay Report Signed Patient: Zeferino Miner#: [id number] : 1975Acct:[id number] Age/Sex: 49 / FADM Date: 05/29/25 [facility]: Lianna Taylor MD Ordering Physician: Lianna Montero MD Date of Service: 05/29/25 Procedure(s): XR shoulder LT min 2V Accession Number(s): [id number] cc: Lianna Montero MD EXAMINATION: XR SHOULDER, LEFT CLINICAL INFORMATION: chronic pain COMPARISON: None available. TECHNIQUE: AP external rotation, Grashey, scapular Y, and axillary views of the left shoulder. FINDINGS: No acute cortical disruption or malalignment. No lytic or blastic lesions. No subchondral cyst formation or sclerosis along the articular surface. No calcifications in the soft tissues. XR/XR shoulder LT min 2V IMPRESSION: Normal x-ray, left shoulder. Electronically signed by: Wade Dyer MD 05/29/2025 10:53 AM EDT RP Dictated By: Wade Wallace MD Signed By: <Electronically signed by Wade Gastelum MDin OV> 05/29/25 1053 DD/ 5 TD/TT: 05/29/25929 Statement Processor: us Lianna Taylor MD IMG XR PROCEDURES Fin al Result * Mammography Report 1 (11/26/2020 12:17 PM EST) Anatomical Region Laterality Modality Breast Bilateral Mammography 11/26/2020 12:1 7 PM EST Narrative 11/26/2021 12:35 AM EST Refer to the Notes tab for result details [facility] Procedure: Mammography Report 1 Procedure Note Provider, Damon, - 01/03/2023 Refer to the Notes tab for result details [facility] Procedure: Mammography Report 1 Dave Lopes ICT SALES ASSISTANT IMG BI PROCEDURES Final Res ult * THINPREP PAP (08/02/2020 1:37 PM EDT) Clinical Information: SEE COMMENT [facility] Comment:None given COMMENT SEE COMMENT [...] along with historic and current clinical information. Director Industrial Nursing: SEE COMMENT [facility] Comment: KF, CT(ASCP) CT screening location: [place] [address] Interpretation/Resu lt: SEE COMMENT [facility] Comment:Negative for intraep ithelial lesion or malignancy. LMP: SEE COMMENT [facility] Comment:NONE GIVEN Prev. BX: NONE GIVEN [facility] Prev. PAP: SEE COMMENT [facility] Comment:NONE GIVEN SOURCE: SEE COMMENT [facility] Comment:None given Statement Of Adequacy: SEE COMMENT [facility] Comment: Satisfactory for evaluation. Endocervical/transformation zone component absent. Age and/or menstrual status not provided 08/02/2020 1:37 PM EDT Karenshey Marianne ICT SALES ASSISTANT LAB PATHOLOGY ORDERABLES Fi nal Result [facility] [address] * HPV mRNA E6/E7 (08/02/2020 1:37 PM EDT) HPV nRNA E6/E7 Not Detected Not Detected [facility] Comment: This test was performed using the APTIMA HPV Assay ([employer] This assay detects E6/E7 viral messenger RNA (mRNA) from 14 high-risk HPV types (16,18,31,33,35,39,45,51,52,56,58,59,66,68). The analytical performance characteristics of this assay have been determined by [employer]. The modifications have not been cleared or approved by the FDA. This assay has been validated pursuant to the CLIA regulations and is used for clinical purposes. NO COLLECTION DATE RECEIVED. WE HAVE USED THE DATE THE SPECIMEN WAS RECEIVED BY THIS LABORATORY THE COLLECTION DATE. IF THIS IS INCORRECT, PLEASE CONTACT CLIENT SERVICES. PHONE NUMBER: 08/02/2020 1:37 PM EDT Dave Lopes ICT SALES ASSISTANT LAB BLOOD ORDERABLES Final Result [facility] [address] from Last 3 Months or Most Recently Relevant to Health Maintenance Insurance C3 Care Teams Coverer Relationship Specialty Start Date End Date Ivonne Oh FNP [address] [place] [phone] PCP - General Family Medicine 05/26/25
--- OUTSIDE RECORDS SUMMARY | 2025-06-22 10:54 | XMS_ITS | Clinical Summary ---
Author Organization [employer] [facility] Address [address] [place] [phone] Care Team Providers Care Senior Oracle Database Developer Name Role Phone Unavailable Primary Care Provider [...] Cervical Cancer Screening: P ap Smear 12/26/1995 Depression Screening 10/12/2024 Pneumococcal Vaccine: 50+ Ye ars (1 of 1 - PCV) 2024 Zoster Vaccines (1 of 2) 2024 COVID-19 Vaccine (2023-2 5 season) 2025 Influenza Vaccine (#1) 2025 HIB Vaccines Aged [...]
--- OUTSIDE RECORDS SUMMARY | 2025-06-22 10:54 | XMS_ITS | Encounter Summary ---
Author Organization [employer] Address [address] [facility] [address] [place] [address] Care Team Providers Care Engine Inspector Name Role Phone Ivonne Oh TRADE SHOW MANAGER Primary Care Provider [phone] Encounter Details Date Type Department Care Team (Latest Contact Info) Description 06/21/2025 Travel Social History Tobacco Use Types Packs/Day Years [...] AM EDT documented as of this encounter Functional Status * Over the [...] things 2 06/21/2025 1:59 PM EDT Jenniffer Nagel MA Trouble relaxing 2 06/21/2025 1:59 PM [...] Description 06/28/2025 11:00 AM EDT Office Visit [facility] MED[facility] [address] [place] [address] Ivonne Oh FNP [address] [facility] [address] 06/30/2025 9:30 AM EDT Office Visit [facility] [address] [facility] [place] [address] documented as of this encounter Visit Diagnoses Not on filedocumented in this encounter Additional Health Concerns Assessment Noted Time PHQ-9 Depression Total Score: 9 06/21/20 1:59 PM EDT documented as of this encounter Care Teams Engine Inspector Relationship Specialty Start Date End Date Ivonne Oh FNP [address] [facility] [place] [address] PCP - General Family Medicine 05/26/25 documented as of this encounter
--- OUTSIDE RECORDS SUMMARY | 2025-06-22 10:54 | XMS_ITS | Encounter Summary ---
Author Organization [employer] Address [address] [place] [address] Care Team Providers Care Apartment Groundskeeper Name Role Phone Ivonne Oh PLATE DRYING MACHINE TENDER Primary Care Provider [phone] Reason for Visit * Reason Onset Date Comments Chart Prep 06/19/2025 Encounter Details Date Type Department Care Team (Late st Contact Info) Description 06/19/2025 Telephone [facility] [address] [place], [place] [id number] Ivonne Oh FNP [address] [place] [address] Chart Prep Social History Tobacco Use Types Packs/Day Years Used Date Smoking Tobacco: Never Passive Smoke Exposure: Never Smokeless Tobacco: Never Comments Unknown Sex and Gender Information Value Date Recorded Sex Assigned at Female 08/11/2022 10:36 AM EDT Legal Sex Female 10:36 AM EDT Gender Identity Female 08/11/2022 10:36 AM EDT Sexual Orientation Straight 08/11/2022 10 :36 AM EDT documented as of this encounter Miscellaneous Notes * Telephone Encounter - Abeba [place] - 06/19/2025 9:17 AM EDT Chart Prep Labs: done Images: done Referrals: ENT Surgeon - called the office to verify if patient had her appt unable to reach , waittime was to long. Vaccines due: Covid, Flu, PCV20, Hep B, and Zoster Screenings: colonoscopy and mammogramAlcohol/Substance Use Screening Overdue care gaps: SBIRT, SDOH, PHQ-9, SÁNCHEZ-7, Oral health screening, Disability screen, and Tobacco documented in this encounter Plan of Treatment Upcoming Encounters Date Type Department Care Team (Late st Contact Info) Description 06/28/2025 11:00 AM EDT Office Visit [facility] MED[facility]INE [address] [place] [address] Ivonne Oh FNP [address] [place] [address] 06/30/2025 9:30 AM EDT Office Visit [facility] ADULT DENTAL [address] [place] [address] documented as of this encounter Visit Diagnoses Not on filedocumented in this encounter Care Teams Apartment Groundskeeper Relationship Specialty Start Date End Date Ivonne Oh FNP [address] [place] [address] PCP - General Family Medicine 05/26/25 documented as of this encounter
[2025-06-22 11:39] LABS: MANUAL DIFF FLAG NO
[2025-06-22 11:42] LABS: Hematocrit 40.4 % (37.0-47.0); Hemoglobin 13.2 g/dl (12.0-16.0); Imm Gran Abs Auto 0.03 X10*3/uL (0.00-0.03); Imm Gran Pct Auto 0.4 % (0.0-0.4); Lymphocytes Absolute Auto 2.8 X10*3/uL (1.2-4.9); Mean Corpuscular HGB Conc 32.7 g/dl (31.0-35.0); Mean Corpuscular Hemoglobin 29.7 pg (27.0-33.0); Mean Corpuscular Volume 90.8 fL (80.0-98.0); NRBC Abs Auto 0.000 X10*3/uL (0.0-0.012); NRBC Pct Auto 0.0 /100WBC (0.0-0.2); Platelet Count 341 X10*3/uL (160-400); Red Blood Count 4.45 X10*6/uL (4.20-5.50); White Blood Count 7.2 X10*3/uL (4.8-10.8)
[2025-06-22 12:21] LABS: Alanine Aminotransferase 15 U/L (0-31); Albumin Level 4.3 g/dL (3.5-5.0); Alkaline Phosphatase 63 U/L (39-117); Anion Gap 11 (12-20); Aspartate Amino Transferase 24 U/L (5-31); Blood Urea Nitrogen 12 mg/dL (9-16); Calcium 9.3 mg/dL (8.4-10.2); Carbon Dioxide 25 mmol/L (22-29); Chloride 107 mmol/L (96-108); Estimated Glomerular Filt Rate > 60; HBS Num1 41.09 mIU/mL (0-7.99); HBc Num1 10.76 S/CO (0.00-0.79); HBsAGNum1 0.39 S/CO (0.00-0.99); HIV Num 1 0.04 S/CO (0.00-0.99); Hepatitis B Surface Antigen Negative (Negative); Potassium 4.4 mmol/L (3.3-5.1); Sodium 139 mmol/L (135-145); Total Protein 7.6 g/dL (6.5-8.0); ~HepC Num1 0.13 S/CO (0.00-0.79); ~Hepatitis B Surface Antibody REACTIVE (Nonreactive); ~Hepatitis C Antibody Nonreactive (Nonreactive)
[2025-06-22 12:25] LABS: Thyroid Stimulating Hormone 1.98 uIU/mL (0.32-4.0)
[2025-06-23 09:42] LABS: HBc Num2 11.65 S/CO; HBc Num3 11.81 S/CO
== END 2025-06-22 09:25 | disposition home or self-care (01) ==
LOC: HO.HHCL 09:24
PROVIDERS: PCP Nurse Practitioner Family; Visit Provider Nurse Practitioner Family
DX: Z00.00 Encounter for general adult medical examination without abnormal findings (principal); Z11.4 Encounter for screening for human immunodeficiency virus [HIV]; Z11.59 Encounter for screening for other viral diseases
CPT/HCPCS: 36415; 80053; 82306; 84443; 85025; 86704; 86706; 86803; 87340; 87389